=== PATIENT | female | born 1985 | race Caucasian/White ===

== ENCOUNTER 2020-01-18 08:57 | Inpatient (IN) | payer OTHER ==
[2020-01-18] MEDS ORDERED: Ondansetron 4 MG/2 ML SDV IVPUSH PRN (09:15)
[2020-01-18] MEDS ORDERED: Oxytocin/Lactated Ringers 10 UNIT/1,000 ML BAG IV SCH (09:15)
[2020-01-18] MEDS ORDERED: Nalbuphine 10 MG/ML Syringe IVPUSH PRN (09:15)
[2020-01-18] MEDS ORDERED: Lidocaine 1% 50 ML MDV INJECT ONE (09:15)
[2020-01-18] MEDS ORDERED: Sodium Chloride 0.9% 10 ML Syringe FLUSH PRN (09:15)
[2020-01-18] MEDS ORDERED: Lactated Ringers 1,000 ML IV SCH (09:15)
--- NOTE | 2020-01-18 10:05 | PCM.LDHP ---
L&D History of Present Illness - General Date of Service: 01/18/20 Admit Problem/Dx: Patient Status Order with Admit Dx/Problem 01/18/20 09:15 Patient Status [ADT] Routine Admission Diagnosis/Problem Admission Diagnosis/Problem Normal labor 01/18/20 09:54 Nely is a 34-year-old 2 para 0010 white female who was admitted on 2019 in active labor with complete cervical dilation at a gestational age of 39- 1/7 weeks with an CARRIE of 01/24/2020. Source of Information: Patient History Limitations: Reports: No Limitations - History of Present Illness Introduction:: Nely is a 34-year-old 2 para 0010 white female who was admitted on 2019 in active labor with complete cervical dilation at a gestational age of 39- 1/7 weeks with an CARRIE of 01/24/2020. Patient reports that her labor started at 0600 hours this morning. She hasn't had any vaginal bleeding or loss of fluid. Baby has been active. Contractions are occurring every 3 minutes and are intense. She is found to be completely dilated, +2 station, bulging bag of chadwick which is ruptured with resultant clear amniotic fluid. 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 Menarche age 12. Cycles every month with duration of 5 days. Using no control to time conception. Her CARRIE of 2019 was determined by her certain LMP of 04/19/2019 and supported by 3 ultrasounds during the course of done on 05/31/2019, 07/02/2019 and 09/21. Previous ended in a spontaneous miscarriage on 07/20/2016 in first trimester. course: Patient's first visit was on 07/02/2019 but an ultrasound was done approximately one month earlier and confirmed dates at 6-1/ 7 weeks. She had regular visits during the course of . She had normal fundal height growth. Her weight gain was from 212-250 pounds for a 38 pound increase. She is group B strep negative. She has had some back pain with sciatica. Her [place] depression screening score on 09/27/2019 was 4/ 30. She plans to breast-feed. She also has an umbilical hernia which is causing some discomfort during . She received her flu immunization on 2018. Her T dap immunization on 11/21/2019. She is rubella immune. Laboratory testing: Blood is O+ with negative and breast feeding. First hemoglobin is 13.2 g/dL and platelets are 318,000. Rubella titer shows immunity. RPR is nonreactive. Urine culture was negative. The surface antigen and HIV assays are both negative. Gonorrhea and chlamydia tests were both negative. The second trimester labs showed hemoglobin 12.0 g/dL and platelets at 326,000. Type and screen test was normal at 105 Third trimester RPR done on 10/23/2019 was nonreactive. B strep screen negative. Allergies: 1. Ibuprofen 2. Adhesive tape Medications: 1. vitamins 1 by mouth daily. Past medical history: 1. Infertility with treatment Past surgical history: 1. Benign cyst removed from her neck 1994 Family history: Mother is secondary to colon cancer at age 50. She had infertility problems also. She had multiple miscarriage �12. Father is alive but has atrial fibrillation, high blood pressure, age 62. Maternal grandmother is secondary to pelvic cancer of some type. Maternal grandfather is secondary Parkinson's and heart disease 1985. Paternal grandmother causes unknown 1987. Paternal grandfather is secondary to heart disease. There is no family history otherwise of cancer, bleeding or blood clotting disorders, anesthesia related issues or problems. Social history: Patient is . is Dariel. They live in [place]. She does not use any significant muscle L call, drugs or tobacco. Review of systems: Patient is in active labor with complete cervical dilation. Skin: Negative Lungs: No infectious symptoms or shortness of breath Cardiovascular: No chest pain or exercise intolerance Breasts: Negative. GI: Negative : Principal changes Musculoskeletal: Negative Neurological: Negative Last evaluation clinic patient's physical exam was as follows: In general the patient is well-developed, well-nourished, pleasant female of stated age in no acute distress. He is however in moderate distress at this time because of her labor. Skin is warm dry without lesions. HEENT, neck and back within normal limits. Lungs are clear with good breath sounds in all lung malone. Cardiovascular exam shows regular and rhythm without murmurs. Breasts exam deferred having been done at first medical visit and found to be normal. At this time. Abdomen is gravid with fundal height of 40.5 cm. Baby in vertex presentation. Genital digital exam is as above.. Extremities and neurological exam are grossly within normal limits. - Related Data Allergies/Adverse Reactions: Allergies Allergy/AdvReac Type Severity Reaction Status Date / Time ibuprofen [From Motrin] Allergy Other Verified 08/29/16 21:05 Home Medications: Home Meds . 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: Reports: Other (See Below) Other OB/BYN History: infertility Social & Family History - Caffeine Use Caffeine Use: Reports: Coffee, Soda, Tea H&P Review of Systems - Review of Systems: Review Of Systems: See Below L&D Exam - Exam Exam: See Below Problem List Initiated/Reviewed/Updated: Yes Orders Last 24hrs: Active Orders 24 hr Category Date Time Status Patient Status [ADT] Routine ADT 01/18/20 09:15 Active Activity as Tolerated [RC] PFP Care 01/18/20 09:15 Active Communication Order [RC] ASDIRECTED Care 01/18/20 09:15 Active Heart Tones [RC] ASDIRECTED Care 01/18/20 09:16 Active Non Stress Test [RC] PER UNIT ROUTINE Care 01/18/20 09:15 Active Notify Provider [RC] PFP Care 01/18/20 09:15 Active Notify Provider [RC] PRN Care 01/18/20 09:15 Active Peripheral IV Care [RC] Q2HR Care 01/18/20 09:16 Active Vital Signs [RC] PER UNIT ROUTINE Care 01/18/20 09:15 Active CBC WITH AUTO DIFF [HEME] Stat Lab 01/18/20 09:13 Ordered RAPID PLASMA REAGIN,RPR [CHEM] Stat Lab 01/18/20 09:13 Ordered Lactated Ringers [Ringers, Lactated] 1,000 ml Med 01/18/20 09:15 Active IV ASDIRECTED Nalbuphine [Nubain] Med 01/18/20 09:15 Active 10 mg IVPUSH Q2H PRN Ondansetron [Zofran] Med 01/18/20 09:15 Active 4 mg IVPUSH Q4H PRN Oxytocin/Lactated Ringers [Pitocin in LR 10 Units/1,000 Med 01/18/20 09:15 Active ML] 10 unit in 1,000 ml IV .CONTINUOUS Sodium Chloride 0.9% [Saline Flush] Med 01/18/20 09:15 Active 10 ml FLUSH ASDIRECTED PRN Electronic Heart Tones Ext w TOCO [WOMSER] Oth 01/18/20 09:15 Ordered Routine Electronic Heart Tones Internal [WOMSER] Per Unit Oth 01/18/20 09:15 Ordered Routine Peripheral IV Insertion Adult [OM.PC] Routine Oth 01/18/20 09:15 Ordered Resuscitation Status Routine Resus Stat 01/18/20 09:15 Ordered Medication Orders Lactated Ringer's (Ringers, Lactated) 1,000 mls @ 100 mls/hr IV ASDIRECTED PRIETO Oxytocin/Lactated Ringer's (Pitocin In Lr 10 Units/1,000 Ml) 10 unit in 1,000 mls @ 500 mls/hr IV .CONTINUOUS PRIETO Nalbuphine HCl (Nubain) 10 mg IVPUSH Q2H PRN PRN Reason: Pain Ondansetron HCl (Zofran) 4 mg IVPUSH Q4H PRN PRN Reason: Nausea/Vomiting Sodium Chloride (Saline Flush) 10 ml FLUSH ASDIRECTED PRN PRN Reason: Keep Vein Open Assessment/Plan Comment:: 1. 39-2/7 week intrauterine , active labor, complete cervical dilation upon admission, assuring heart tones 2. Group B strep screen negative. 3. plans to breast-feed. 4. Rubella immune. A+ blood. Patient has received her flu shot and her T dap during the . Plan: 1. Anticipate normal spontaneous tenderness vaginal delivery 2. Routine labor care 3. Support breast-feeding plan 4. RPR and CBC upon admission
[2020-01-18] MEDS ORDERED: Lidocaine 1% 50 ML MDV ONE (12:18)
[2020-01-18] MEDS ORDERED: Methylergonovine 0.2 MG/1 ML Amp IM ONE (12:39)
--- NOTE | 2020-01-18 12:58 | PCM.SN.2 ---
- Free Text/Narrative Note: Delivery note: Nely is a 34-year-old 2 para 0010 white female who was admitted on 2019 in active labor with complete cervical dilation at a gestational age of 39- 1/7 weeks with an CARRIE of 01/24/2020. The patient was allowed to labor down and pushed for approximately 2 hours. Nely pushed for approximately 2-3 hours and at 1216 hrs. on 01/18/2020 patient delivered a viable, chauhan, female with Apgars of 8 and 9, weight of 8 pounds 5.3 ounces (3780 g) and a length of 20.5 inches, in a right occiput anterior position. The baby was placed on mom's abdomen, nose and mouth were bulb suctioned and baby was dried and warmed. Attempt was made to provide IV Pitocin but the IV was accidentally pulled out during the course of the last few contractions of labor. The umbilical cord was allowed to pulsate times approximately 2-3 minutes. It was then clamped �2 and cut by the baby's father Dariel. Cord blood was obtained.The umbilical cord had 3 vessels. Patient is noted to have a right vaginal laceration extending onto the medial aspect of the labia minora and a second-degree perineal laceration. Perineal laceration was repaired in routine fashion with 3-0 Monocryl after infiltration with approximately 10 mL of lidocaine 1%. The right vaginal extending to labial laceration was repaired with a short running suture of 3-0 Monocryl. Patient was given an IM dose of Methergine 0.2 mg because of some bleeding that was noted. This then brought about good uterine contraction and decrease in vaginal flow. Estimated blood loss was 400 mL. Patient plans to breast-feed. Condition: Good.
[2020-01-18] MEDS ORDERED: Docusate Sodium 100 MG Cap PO PRN (13:27)
[2020-01-18] MEDS ORDERED: Acetaminophen 325 MG Tab PO PRN (13:27)
[2020-01-18] MEDS ORDERED: Ibuprofen 600 MG Tab PO PRN (13:27)
[2020-01-18] MEDS ORDERED: Witch Hazel Medicated Pads 40/Jar TOP PRN (13:27)
[2020-01-18] MEDS ORDERED: Benzocaine/Menthol 20%-0.5% Spray 56 GM Canister TOP PRN (13:27)
--- NOTE | 2020-01-19 07:12 | PCM.PNPP ---
- General Info Date of Service: 01/19/20 Functional Status: Reports: Pain Controlled, Tolerating Diet, Ambulating, Urinating - Review of Systems General: Reports: No Symptoms Pulmonary: Reports: No Symptoms Cardiovascular: Reports: No Symptoms Gastrointestinal: Reports: No Symptoms Genitourinary: Reports: No Symptoms Musculoskeletal: Reports: No Symptoms Neurological: Reports: No Symptoms - Patient Data Vital Signs - Most Recent: Last Vital Signs Temp 37.2 C 01/19/20 05:06 Pulse 77 01/19/20 05:06 Resp 15 01/19/20 05:06 BP 123/71 01/19/20 05:06 Pulse Ox 96 01/19/20 05:06 Weight - Most Recent: 111.13 kg I&O - Last 24 Hours: Intake & Output 01/18/20 01/19/20 01/19/20 22:59 06:59 14:59 Intake Total 1020 Balance 1020 Lab Results - Last 24 Hours: Laboratory Results - last 24 hr 01/18/20 01/18/20 Range/Units 10:05 10:05 WBC 13.31 H (3.98-10.04) K/mm3 RBC 4.64 (3.98-5.22) M/mm3 Hgb 12.5 (11.2-15.7) gm/dl Hct 38.5 (34.1-44.9) % MCV 83.0 D (79.4-94.8) fl MCH 26.9 (25.6-32.2) pg MCHC 32.5 (32.2-35.5) g/dl RDW Std Deviation 39.7 (36.4-46.3) fL Plt Count 296 (182-369) K/mm3 MPV 9.8 (9.4-12.3) fl Neut % (Auto) 84.4 H (34.0-71.1) % Lymph % (Auto) 10.3 L (19.3-51.7) % Stokes % (Auto) 4.1 L (4.7-12.5) % Eos % (Auto) 0.5 L (0.7-5.8) Baso % (Auto) 0.2 (0.1-1.2) % Neut # (Auto) 11.26 H (1.56-6.13) K/mm3 Lymph # (Auto) 1.37 (1.18-3.74) K/mm3 Stokes # (Auto) 0.54 H (0.24-0.36) K/mm3 Eos # (Auto) 0.06 (0.04-0.36) K/mm3 Baso # (Auto) 0.02 (0.01-0.08) K/mm3 RPR Non-reactive (NONREACTIVE) Med Orders - Current: Current Medications Acetaminophen (Tylenol) 650 mg PO Q4H PRN PRN Reason: mild pain or fever Benzocaine/Menthol (Dermoplast Pain Relief [place]) 0 gm TOP ASDIRECTED PRN PRN Reason: Perineal Comfort Measure Last Admin: 01/18/20 14:35 Dose: 1 can Docusate Sodium (Colace) 100 mg PO BID PRN PRN Reason: Constipation Ibuprofen (Motrin) 600 mg PO Q4H PRN PRN Reason: Mild pain or fever Prenat Multivit/Shovel Loader Operator/Iron/Folic Ac ( Plus Iron) 1 each PO DAILY [facility] Rosita Patel (Tucks) 1 pad TOP ASDIRECTED PRN PRN Reason: Perineal Comfort Measure Last Admin: 01/18/20 14:35 Dose: 1 tub Discontinued Medications Lactated Ringer's (Ringers, Lactated) 1,000 mls @ 100 mls/hr IV ASDIRECTED [facility] Last Admin: 01/18/20 09:30 Dose: 100 mls/hr Oxytocin/Lactated Ringer's (Pitocin In Lr 10 Units/1,000 Ml) 10 unit in 1,000 mls @ 500 mls/hr IV .CONTINUOUS [facility] Lidocaine HCl (Xylocaine 1%) 50 ml INJECT ONETIME ONE Stop: 01/18/20 09:16 Last Admin: 01/18/20 12:25 Dose: 50 ml Lidocaine HCl (Xylocaine 1%) Confirm Administered Dose 50 ml .ROUTE .STK-MED ONE Stop: 01/18/20 12:19 Methylergonovine Maleate (Methergine) 0.2 mg IM STAT ONE Stop: 01/18/20 12:40 Last Admin: 01/18/20 12:50 Dose: 0.2 mg Nalbuphine HCl (Nubain) 10 mg IVPUSH Q2H PRN PRN Reason: Pain Ondansetron HCl (Zofran) 4 mg IVPUSH Q4H PRN PRN Reason: Nausea/Vomiting Sodium Chloride (Saline Flush) 10 ml FLUSH ASDIRECTED PRN PRN Reason: Keep Vein Open - Interaction Infant Disposition, : [place] in Room with Family Interaction: Holding Infant Infant Feeding: Attempted ; Nursed Fair/Poor Support Person: - Recovery Exam Fundal Tone: Firm Fundal Level: At Umbilicus Fundal Placement: Midline Lochia Amount: Small Lochia Color: Rubra/Red Perineum Description: Intact, Minimal Bruising/Swelling Episiotomy/Laceration: Approximated Bladder Status: Voiding Urinary Elimination: Voided - Exam General: Alert, Oriented, Cooperative GI/Abdominal Exam: Soft, Non-Tender Extremities: Normal Inspection Skin: Warm, Dry, Intact - Problem List & Annotations (1) Vaginal delivery SNOMED Code(s): 142066303 Code(s): O80 - ENCOUNTER FOR FULL-TERM UNCOMPLICATED DELIVERY Status: Acute Current Visit: Yes - Problem List Review Problem List Initiated/Reviewed/Updated: Yes - Assessment Assessment:: PPD#1 - Plan Plan:: * Routine cares * Breast feeding * Discharge home tomorrow
[2020-01-19] MEDS: Prenatal Multivitamin with Calcium/Folic Acid/Iron Tab PO SCH (09:24)
--- NOTE | 2020-01-20 07:44 | PCM.DCSUM1 ---
Discharge Summary - Discharge Data Discharge Date: 01/20/20 Discharge Disposition: Home, Self-Care 01 Condition: Good - Referral to Home Health Primary Care Physician: Zachary Juarez MD - Discharge Diagnosis/Problem(s) (1) Vaginal delivery SNOMED Code(s): 346560640 ICD Code: O80 - ENCOUNTER FOR FULL-TERM UNCOMPLICATED DELIVERY Status: Acute Current Visit: Yes - Patient Summary/Data Complications: None Consults: None Recommended Follow-up Testing/Procedures: Follow up in 3 weeks for check Hospital Course: 34 y/o at 39 1/7 wks who presented in labor. She progressed well and had an uncomplicated . See delivery note. did well and was discharged home on PPD#2 - Patient Instructions Diet: Regular Diet as Tolerated Activity: As Tolerated Activity, Other: Pelvic rest for 6 weeks Driving: May Drive Today Showering/Bathing: May Shower Showering/Bathing, Other: May Bathe Notify Provider of: Fever, Increased Pain, Swelling and Redness, Drainage, Nausea and/or Vomiting - Discharge Plan *PRESCRIPTION DRUG MONITORING PROGRAM REVIEWED*: Not Applicable *COPY OF PRESCRIPTION DRUG MONITORING REPORT IN PATIENT ZEKE: Not Applicable Home Medications: Home Meds Acetaminophen [Tylenol] 650 mg PO Q4H PRN tablet 01/18/20 [Rx] Docusate Sodium [Colace] 100 mg PO BID PRN cap 01/18/20 [Rx] Ibuprofen [Motrin] 600 mg PO Q4H PRN tablet 01/18/20 [Rx] Pnv No.95/Ferrous Fum/Folic AC [ Tablet] 1 tab PO DAILY 01/18/20 [ History] Vit with Ca/FA/Iron [ Plus Iron] 1 each PO DAILY tablet [Rx] Patient Handouts: and Mastitis, and Self-Care, Easy -to-Read, How To Prepare Formula, Breast Engorgement, Care of a Perineal Tear, Care After Vaginal Delivery, and Cracked or Sore Nipples, [id number], Eating Plan for Women, Jaundice, Tavares, [id number] Referrals: Zachary Juarez MD [Primary Care Provider] - (3 weeks for check ) - Discharge Summary/Plan Comment DC Time >30 min.: No - Patient Data Vitals - Most Recent: Last Vital Signs Temp 36.3 C 01/20/20 02:30 Pulse 67 01/20/20 02:30 Resp 14 01/20/20 02:30 BP 102/72 01/20/20 02:30 Pulse Ox 97 01/20/20 02:30 Weight - Most Recent: 111.13 kg I&O - Last 24 hours: Intake & Output 01/19/20 01/20/20 01/20/20 22:59 06:59 14:59 Intake Total 760 Balance 760 Med Orders - Current: Current Medications Acetaminophen (Tylenol) 650 mg PO Q4H PRN PRN Reason: mild pain or fever Benzocaine/Menthol (Dermoplast Pain Relief [place]) 0 gm TOP ASDIRECTED PRN PRN Reason: Perineal Comfort Measure Last Admin: 01/18/20 14:35 Dose: 1 can Docusate Sodium (Colace) 100 mg PO BID PRN PRN Reason: Constipation Ibuprofen (Motrin) 600 mg PO Q4H PRN PRN Reason: Mild pain or fever Prenat Multivit/Hybrid Car Mechanic/Iron/Folic Ac ( Plus Iron) 1 each PO DAILY [facility] Last Admin: 01/19/20 09:24 Dose: 1 each Witch Amanda (Tucks) 1 pad TOP ASDIRECTED PRN PRN Reason: Perineal Comfort Measure Last Admin: 01/18/20 14:35 Dose: 1 tub Discontinued Medications Lactated Ringer's (Ringers, Lactated) 1,000 mls @ 100 mls/hr IV ASDIRECTED [facility] Last Admin: 01/18/20 09:30 Dose: 100 mls/hr Oxytocin/Lactated Ringer's (Pitocin In Lr 10 Units/1,000 Ml) 10 unit in 1,000 mls @ 500 mls/hr IV .CONTINUOUS [facility] Lidocaine HCl (Xylocaine 1%) 50 ml INJECT ONETIME ONE Stop: 01/18/20 09:16 Last Admin: 01/18/20 12:25 Dose: 50 ml Lidocaine HCl (Xylocaine 1%) Confirm Administered Dose 50 ml .ROUTE .STK-MED ONE Stop: 01/18/20 12:19 Methylergonovine Maleate (Methergine) 0.2 mg IM STAT ONE Stop: 01/18/20 12:40 Last Admin: 01/18/20 12:50 Dose: 0.2 mg Nalbuphine HCl (Nubain) 10 mg IVPUSH Q2H PRN PRN Reason: Pain Ondansetron HCl (Zofran) 4 mg IVPUSH Q4H PRN PRN Reason: Nausea/Vomiting Sodium Chloride (Saline Flush) 10 ml FLUSH ASDIRECTED PRN PRN Reason: Keep Vein Open
--- NOTE | 2020-01-20 07:44 | PCM.PNPP ---
- General Info Date of Service: 01/20/20 Functional Status: Reports: Pain Controlled, Tolerating Diet, Ambulating, Urinating - Review of Systems General: Reports: No Symptoms Pulmonary: Reports: No Symptoms Cardiovascular: Reports: No Symptoms Gastrointestinal: Reports: No Symptoms Genitourinary: Reports: No Symptoms Musculoskeletal: Reports: No Symptoms Neurological: Reports: No Symptoms - Patient Data Vital Signs - Most Recent: Last Vital Signs Temp 36.3 C 01/20/20 02:30 Pulse 67 01/20/20 02:30 Resp 14 01/20/20 02:30 BP 102/72 01/20/20 02:30 Pulse Ox 97 01/20/20 02:30 Weight - Most Recent: 111.13 kg I&O - Last 24 Hours: Intake & Output 01/19/20 01/20/20 01/20/20 22:59 06:59 14:59 Intake Total 760 Balance 760 Med Orders - Current: Current Medications Acetaminophen (Tylenol) 650 mg PO Q4H PRN PRN Reason: mild pain or fever Benzocaine/Menthol (Dermoplast Pain Relief [place]) 0 gm TOP ASDIRECTED PRN PRN Reason: Perineal Comfort Measure Last Admin: 01/18/20 14:35 Dose: 1 can Docusate Sodium (Colace) 100 mg PO BID PRN PRN Reason: Constipation Ibuprofen (Motrin) 600 mg PO Q4H PRN PRN Reason: Mild pain or fever Prenat Multivit/[place]illar/Iron/Folic Ac ( Plus Iron) 1 each PO DAILY [facility] Last Admin: 01/19/20 09:24 Dose: 1 each Witch Amanda (Tucks) 1 pad TOP ASDIRECTED PRN PRN Reason: Perineal Comfort Measure Last Admin: 01/18/20 14:35 Dose: 1 tub Discontinued Medications Lactated Ringer's (Ringers, Lactated) 1,000 mls @ 100 mls/hr IV ASDIRECTED [facility] Last Admin: 01/18/20 09:30 Dose: 100 mls/hr Oxytocin/Lactated Ringer's (Pitocin In Lr 10 Units/1,000 Ml) 10 unit in 1,000 mls @ 500 mls/hr IV .CONTINUOUS [facility] Lidocaine HCl (Xylocaine 1%) 50 ml INJECT ONETIME ONE Stop: 01/18/20 09:16 Last Admin: 01/18/20 12:25 Dose: 50 ml Lidocaine HCl (Xylocaine 1%) Confirm Administered Dose 50 ml .ROUTE .STK-MED ONE Stop: 01/18/20 12:19 Methylergonovine Maleate (Methergine) 0.2 mg IM STAT ONE Stop: 01/18/20 12:40 Last Admin: 01/18/20 12:50 Dose: 0.2 mg Nalbuphine HCl (Nubain) 10 mg IVPUSH Q2H PRN PRN Reason: Pain Ondansetron HCl (Zofran) 4 mg IVPUSH Q4H PRN PRN Reason: Nausea/Vomiting Sodium Chloride (Saline Flush) 10 ml FLUSH ASDIRECTED PRN PRN Reason: Keep Vein Open - Infant Interaction Infant Disposition, : in Room with Family Interaction: Holding Feeding: Attempted ; Nursed Fair/Poor Support Person: - Recovery Exam Fundal Tone: Firm Fundal Level: At Umbilicus Fundal Placement: Midline Lochia Amount: Small Lochia Color: Rubra/Red Perineum Description: Intact, Minimal Bruising/Swelling Episiotomy/Laceration: Approximated Bladder Status: Voiding Urinary Elimination: Voided - Exam General: Alert, Oriented, Cooperative GI/Abdominal Exam: Soft, Non-Tender Extremities: Normal Inspection Skin: Warm, Dry, Intact - Problem List & Annotations (1) Vaginal delivery SNOMED Code(s): 596018127 Code(s): O80 - ENCOUNTER FOR FULL-TERM UNCOMPLICATED DELIVERY Status: Acute Current Visit: Yes - Problem List Review Problem List Initiated/Reviewed/Updated: Yes - Assessment Assessment:: PPD#2 - Plan Plan:: * Routine cares * Breast feeding * Discharge home today
[2020-01-20 09:26] VITALS: BP 125/64; PULSE 69
[2020-01-20] MEDS: Prenatal Multivitamin with Calcium/Folic Acid/Iron Tab PO SCH (09:39)
== END 2020-01-20 10:38 | disposition home or self-care (01) | DRG 807 ==
LOC: JD.OB 08:57 → OBSVTOIN 12:16 → JD.OB 12:17 → EDSTATUS 01-24 08:55
PROVIDERS: ADMIT Obstetrics & Gynecology; ATTEND Obstetrics & Gynecology
PROC: 10E0XZZ Delivery of Products of Conception, External Approach (ICD-10-PCS; principal; 2020-01-18)
PROC: 0KQM0ZZ Repair Perineum Muscle, Open Approach (ICD-10-PCS; 2020-01-18)
DX: O70.1 Second degree perineal laceration during delivery (principal); Z37.0 Single live birth; Z3A.39 39 weeks gestation of pregnancy
CPT/HCPCS: 36415; 59025; 59409; 85025; 86592; A9270-GY; J2001; J2210; J7120